=== PATIENT | male | born 1995 | race African-American/Black ===

== ENCOUNTER 2023-11-25 16:54 | Inpatient (IN) | payer BC, SELFPAY ==
--- NOTE | ~2023-11-25 | XR_ITS ---
EXAMINATION: XR CHEST CLINICAL INFORMATION: hx of Valley fever COMPARISON: None available. TECHNIQUE: 2 views of the chest were obtained. FINDINGS: Lungs are clear. No pulmonary vascular congestion. There is no pleural effusion. The heart size is normal. The cardiac and mediastinal contours are normal. Hyde rods in the thoracic spine. Hardware in the upper thoracic spine vertebrae could be due to previous corpectomy. Correlate with history. Prior resection of the posterior right fifth rib. XR/XR chest 2V IMPRESSION: No acute abnormality of the chest.
--- NOTE | ~2023-11-25 | CT_ITS ---
EXAMINATION: CT ABDOMEN AND PELVIS WITHOUT CONTRAST CLINICAL INFORMATION: Abdominal pain. COMPARISON: None available. TECHNIQUE: Multidetector volumetric imaging was performed from the superior aspect of the liver through the pubic symphysis. Sagittal and coronal reformatted images were obtained on the technologist's workstation. This CT examination was performed using dose optimization techniques as appropriate, variously including the following: *Automated exposure control *Adjustment of mA and/or kV according to patient size (this includes techniques or standardized protocols for targeted exams where dose is matched to indication/reason for exam; i.e. extremities or head) *Use of iterative reconstruction technique DLP: 639 mGy-cm FINDINGS: LUNG BASES: There is minimal scarring at the right lung base. LIVER, GALLBLADDER, AND BILIARY TREE: The liver is normal in size, shape, and attenuation. No focal hepatic lesion or biliary ductal dilatation is present. The gallbladder is unremarkable with no evidence of radiopaque gallstones, gallbladder wall thickening, or obvious pericholecystic inflammatory changes. PANCREAS: Unremarkable. SPLEEN: Spleen measures up to 16 cm. No focal splenic lesions are seen. ADRENAL GLANDS: Unremarkable. KIDNEYS AND URETERS: The kidneys are normal in size, shape, and attenuation. No hydronephrosis, hydroureter, or calculi seen. No perinephric stranding. BLADDER: Unremarkable. GASTROINTESTINAL TRACT: The small and large bowel are unremarkable. The appendix is unremarkable. ABDOMINAL WALL: No significant hernia is appreciated. LYMPH NODES: Normal. VASCULAR: Unremarkable. PELVIC VISCERA: Unremarkable. OSSEOUS STRUCTURES: Unremarkable. CT/CT abdomen pelvis wo IV con IMPRESSION: Mild splenomegaly. No other significant abnormality seen. Fleischner guidelines were followed.
[2023-11-25 17:03] VITALS: BP 168/64; PULSE 80; O2SAT 98
--- NOTE | 2023-11-25 17:08 | ED.GENADULT ---
HPI - General Adult General Chief complaint: General Medical Stated complaint: DIAPHORETIC NAUSEA DIZZY HEADACHE Time Seen by Provider: 11/25/23 22:07 Source: patient Mode of arrival: ambulatory Limitations: no limitations History of Present Illness HPI narrative: Patient comes to the emergency room complaining of 1 week of diffuse body aches, intermittent fever and sweats, nausea, diarrhea. Patient states that he returned from [place] on November 13. Patient's sister travel with him and when they [place] to the [place] she tested positive for malaria. On November 18, this Patient went to a hospital in [facility]. Patient states that he was tested for malaria but his results will not be available for a few days. Patient states that his symptoms have gradually been getting worse. Patient was prescribed doxycycline and has been taking it as prescribed. Related Data Allergies Allergy/AdvReac Type Severity Reaction Status Date / Time No Known Allergies Allergy Verified 11/25/23 17:14 Review of Systems Review of Systems: Constitutional : No Weight loss, No Fever, No Chills, No Night Sweats, No Fatigue, No Malaise ENT/Mouth : No Hearing loss, No Ear Pain, No Nasal Congestion, No Sinus Pain, No Hoarseness, No sore throat, No Rhinorrhea, No Swallowing Difficulty Eyes: No Eye Pain, No Swelling, No Redness, No Foreign Body, No Discharge, No Vision Changes Cardiovascular : No Chest Pain, No SOB, No Dyspnea on Exertion, No Orthopnea, No Edema, No Palpitations Respiratory : No Cough, No Sputum, No Wheezing, No Smoke Exposure, No Dyspnea Gastrointestinal : No Nausea, No Vomiting, No Diarrhea, No Constipation, No abdominal Pain, No Hematochezia, No Melena Genitourinary : no irregular bleeding, No Dysuria, No Urinary Frequency, No Hematuria, No Urinary Incontinence, No Urgency, No Flank Pain, No Urinary Flow Changes, No Hesitancy Musculoskeletal : No joint pain, No Myalgias, No Joint Swelling Skin : No Skin Lesions, No rash Neuro : No Weakness, No Numbness, No Paresthesias, No Loss of Consciousness, No Dizziness, No Headache Psych : No Anxiety/Panic, No Depression, No SI/HI/AH/VH, No Social Issues, Heme/Lymph: No Bruising, No Bleeding,No Lymphadenopathy Endocrine : No Polyuria, No Polydipsia, No Temperature Intolerance PMFSH Social History Social History Smoked in Last 30 Days: No Use of substances other than those prescribed or required for medical reasons: No Advance Directives: No Advance Directives Information Provided: No Physical Exam ED Vital Signs: Vital Signs - 24 hr 11/25/23 17:10 11/25/23 20:55 11/25/23 23:10 Temperature 99.1 F 98.4 F Pulse Rate 75 78 91 Respiratory Rate 18 20 16 Blood Pressure 115/52 L 117/81 134/69 Pulse Oximetry 97 100 100 Oxygen Delivery Method Room Air Room Air Room Air BMI result Body Mass Index 35.4 Const Other: Appearance: Alert. Oriented X3. Seems weak Eyes: Pupils equal, round and reactive to light. ENT: Pharynx normal. Dry oral mucosa and lips Neck: Normal inspection. Neck supple. No lymph nodes noted. No crepitus CVS: Normal heart rate and rhythm. Pulses normal. Normal S1 and S2 Respiratory: No respiratory distress. Breath sounds normal. No Wheezing. No rales Abdomen: Soft and nontender. No rigidity. No distention. Skin: Skin warm and dry. Normal skin color. Normal skin turgor. Extremities: No lower extremity edema. No Lacerations. No Rash Neuro: Oriented X 3. No motor deficit. No sensory deficit. Moving all extremities. No slurred speech. CN 2 through 12 grossly intact Psych: calm, cooperative, normal affect Course Course Course Narrative: This is a rapid medical exam: Additional HPI, ROS, PE not included below will be deferred to primary provider. Patient is a 28-year-old male presenting to the ED with complaint of nausea, sweats, fatigue, diarrhea, left sided abdominal pain since 11/18/23. Denies cough or dyspnea. Returned from [place] on 11/11/23. 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 Patient reports that he was seen in an ED in [place], [place] last week, tested for malaria, and was started on doxycycline but patient is unable to state why. States does not believe he was tested for Covid/flu. 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 Medical Decision Making Medical Decision Making [facility] Narrative: -my interpretation of labs: Serology negative for COVID and influenza, negative for strep. Hematology normal white blood cell count, hemoglobin 10.8, no previous labs available. Platelets 38. Patient's LFTs mildly elevated, lactic acid 2.4 and 2.5, receiving IV fluids. Patient taking p.o. doxycycline for approximately 1 week now. -patient's vitals are stable, no hypotension, no fever, sepsis not suspected -patient does look dehydrated, patient getting 2 L of fluid, patient's ideal weight -I discussed the patient with Dr. Meyer, at this time, hydroxychloroquine is not recommended due to resistance. Coartem would best but we dont have it. other option is Malarone (atovaquone/proguanil). In the pharmacy we only have atovaquone, which would not be sufficient to treat. Plan: Admit patient for hydration, tomorrow wait for pathology report. If positive, give to the patient prescription to hand picker in a pharmacy coartem or malarone. Differential Diagnosis Differential Diagnoses: The differential diagnosis associated with the presentation includes (Malaria, viral syndrome) Admission/Observation Consideration of admission/observation: Escalation of care including admission/observation considered Consult Healthcare Provider Management of the patient was discussed with: Hospitalist and Hospice Care Consultant Lab Data [facility] Lab Attestation statement: I reviewed the patient's lab results. 11/25/23 18:01 11/25/23 18:01 Labs: Lab Results 11/25/23 11/25/23 Range/Units 18:01 22:03 WBC 5.0 (4.8-10.8) X10*3/uL RBC 3.58 L (4.60-5.80) X10*6/uL Hgb 10.8 L (14.0-18.0) g/dl Hct 31.0 L (42.0-52.0) % MCV 86.6 (80.0-98.0) fL MCH 30.2 (27.0-33.0) pg MCHC 34.8 (31.0-36.0) g/dl RDW 14.0 (11.0-16.0) % Plt Count 38 L (160-400) X10*3/uL MPV 12.0 (9.4-12.4) fL Immature Gran % (Auto) Cancelled Neut % (Auto) Cancelled Lymph % (Auto) Cancelled [place] % (Auto) Cancelled Eos % (Auto) Cancelled Baso % (Auto) Cancelled Lymph # (Auto) Cancelled [place] # (Auto) Cancelled Eos # (Auto) Cancelled Baso # (Auto) Cancelled Abs Immat Gran (auto) Cancelled Absolute Neuts (auto) Cancelled Absolute Nucleated RBC 0.000 (0.0-0.012) X10*3/uL Nucleated RBC % (auto) 0.0 (0.0-0.2) /100WBC Neutrophils % (Manual) 54 (45-73) % Band Neutrophils % 24 H (3-5) % Lymphocytes % (Manual) 15 L (20-40) % Monocytes % (Manual) 4 (2-11) % Basophils % (Manual) 1 (0-2) % Metamyelocytes % 2 % Abs Neuts (Manual) 3.9 (2.0-8.3) X10*3/uL Lymphocytes # (Manual) 0.8 L (1.2-4.9) X10*3/uL Monocytes # (Manual) 0.2 (0.1-1.2) X10*3/uL Basophils # (Manual) 0.1 (0.0-0.2) X10*3/uL Metamyelocytes # 0.1 X10*3/uL Toxic Vacuolation PRESENT Dohle Bodies PRESENT Platelet Estimate DECREASED (NORMAL) Plt Morphology Comment NORMAL RBC Morphology NOTED Polychromasia 1+ (0-2) /OIF Sodium 134 L (135-145) mmol/L Potassium 3.6 (3.3-5.1) mmol/L Chloride 101 (96-108) mmol/L Carbon Dioxide 22 (22-29) mmol/L Anion Gap 15 (12-20) BUN 24 H (9-16) mg/dL Creatinine 1.25 (0.5-1.4) mg/dL Estim Creat Clear Calc 105.0 Estimated GFR > 60 Random Glucose 138 H (60-115) mg/dL Lactic Acid 2.4 H* (0.5-2.0) mmol/L Lactic Acid F/U @ 2Hr 2.5 H* (0.5-2.0) mmol/L Calcium 8.6 (8.4-10.2) mg/dL Magnesium 1.7 (1.6-2.6) mg/dL Total Bilirubin 3.5 H (0.0-1.0) mg/dL Direct Bilirubin 1.3 H (0.0-0.5) mg/dL AST 88 H (5-37) U/L ALT 36 (0-40) U/L Alkaline Phosphatase 70 (39-117) U/L Total Protein 7.0 (6.5-8.0) g/dL Albumin 3.2 L (3.5-5.0) g/dL Lipase 33 (8-78) U/L Urine Color Red A Urine Appearance Cloudy Urine pH 5.5 (5.0-9.0) Ur Specific [place] >= 1.030 H (1.005-1.025) Urine Protein See Note (Neg-Trace) mg/dL Urine Glucose (UA) See Note (Negative) mg/dL Urine Ketones See Note (Negative) mg/dL Urine Blood See Note (Negative) Urine Nitrite See Note (Negative) Ur Leukocyte Esterase See Note (Negative) Urine RBC >20 H (0-2) /HPF Urine WBC 0-5 (0-5) /HPF Ur Squamous Epith Cells 11-20 (0-2) /HPF Urine Bacteria None Seen (None Seen) Hyaline Casts 6-10 (0-2) /LPF Granular Casts Present COVID-19 (CYNTHIA) Negative (Negative) COVID-19 Clin Com See Note Influenza Type A (MARGARET) Negative (Negative) Influenza Type B (MARGARET) Negative (Negative) Influenza A & B Note See Note S. pyogenes GrpA MARGARET Negative (Negative) Independent Interpretation I performed an independent interpretation of an: Plain X-Ray (My interpretation of chest x-ray: No pneumonia) Radiology Impression Discussion of test interpretation with radiology: I have reviewed the radiologist's reading. Radiologist Impression: Lungs are clear. No pulmonary vascular congestion. There is no pleural effusion. The heart size is normal. The cardiac and mediastinal contours are normal. Hyed rods in the thoracic spine. Hardware in the upper thoracic spine vertebrae could be due to previous corpectomy. Correlate with history. Prior resection of the posterior right fifth rib. XR/XR chest 2V IMPRESSION: No acute abnormality of the chest. Critical Care Time Critical Care Time Critical Care Time: Yes Total Critical Care Time: 75 Attestation: I have personally provided critical care time. Time includes review of lab data, radiology results, discussion with consultants, and monitoring for potential decompensation. Intervention performed as documented. Discharge Plan Discharge Clinical Impression: Acute dehydration Patient Disposition: Admitted As Inpatient
[2023-11-25 17:10] VITALS: BP 115/52; PULSE 75; RESP 18; TEMP 37.3; O2SAT 97; BMI 35.4
--- NOTE | 2023-11-25 17:16 | ECG_ITS ---
Test Reason : FATIGE,DIAPHORETIC Blood Pressure : / mmHG Vent. Rate : 071 BPM Atrial Rate : 071 BPM P-R Int : 204 ms QRS Dur : 108 ms QT Int : 394 ms P-R-T Axes : 022 008 010 degrees QTc Int : 428 ms Normal sinus rhythm Incomplete right bundle branch block Minimal voltage criteria for LVH, may be normal variant ( R in aVL ) Borderline ECG No previous ECGs available Referred By: Rochelle Valle Electronically Signed By:JENNIFER PORTER
[2023-11-25 18:16] LABS: Hemoglobin 10.8 g/dl (14.0-18.0); Mean Corpuscular HGB Conc 34.8 g/dl (31.0-36.0); Mean Corpuscular Hemoglobin 30.2 pg (27.0-33.0); Mean Corpuscular Volume 86.6 fL (80.0-98.0); Red Blood Count 3.58 X10*6/uL (4.60-5.80)
[2023-11-25 18:23] LABS: Appearance Urine Cloudy; Color Urine Red; PH 5.5 (5.0-9.0); Specific Gravity - Urine >= 1.030 (1.005-1.025); UMIC TRIGGER UACC YES
[2023-11-25 18:28] LABS: Alanine Aminotransferase 36 U/L (0-40); Albumin Level 3.2 g/dL (3.5-5.0); Alkaline Phosphatase 70 U/L (39-117); Anion Gap 15 (12-20); Aspartate Amino Transferase 88 U/L (5-37); Bilirubin Total 3.5 mg/dL (0.0-1.0); Blood Urea Nitrogen 24 mg/dL (9-16); Calcium 8.6 mg/dL (8.4-10.2); Carbon Dioxide 22 mmol/L (22-29); Chloride 101 mmol/L (96-108); Estimated Glomerular Filt Rate > 60; Glucose Random 138 mg/dL (60-115); Lipase 33 U/L (8-78); Magnesium 1.7 mg/dL (1.6-2.6); Potassium 3.6 mmol/L (3.3-5.1); Sodium 134 mmol/L (135-145)
[2023-11-25 18:42] LABS: IDNOW Serial# 9DB6401D; Influenza A Negative (Negative); Influenza B2 Negative (Negative)
[2023-11-25 18:43] LABS: COVID-19 Test Negative (Negative); IDNOW Serial# 08D9AD1C; IDNOW Serial# 152EDE1D; Strep A Nucleic Acid Negative (Negative)
[2023-11-25 19:07] LABS: Bacteria Urine None Seen (None Seen); Granular Casts Urine Present; RBC Urine >20 /HPF (0-2); WBC Urine 0-5 /HPF (0-5)
[2023-11-25 19:16] LABS: Neutrophils Percent Manual 54 % (45-73)
[2023-11-25 19:21] LABS: Band Neutrophils Percent 24 % (3-5); Basophils Abs Manual 0.1 X10*3/uL (0.0-0.2); Basophils Percent Manual 1 % (0-2); Dohle Bodies PRESENT; Lymphocytes Absolute Manual 0.8 X10*3/uL (1.2-4.9); Lymphocytes Percent Manual 15 % (20-40); Metamyelocytes Absolute 0.1 X10*3/uL; Metamyelocytes Percent 2 %; Monocytes Absolute Manual 0.2 X10*3/uL (0.1-1.2); Monocytes Percent Manual 4 % (2-11); Neutrophils Absolute Manual 3.9 X10*3/uL (2.0-8.3); RBC Morphology NOTED; Toxic Vacuolation PRESENT
[2023-11-25 19:24] LABS: Platelet Estimate DECREASED (NORMAL); Platelet Morphology Comment NORMAL; Polychromasia 1+ (0-2) /OIF
[2023-11-25 19:26] LABS: Lactic Acid 2.4 mmol/L (0.5-2.0)
[2023-11-25 19:32] LABS: Platelet Count 38 X10*3/uL (160-400)
[2023-11-25 20:10] LABS: Reflex Lactate? Lactic Acid Added
[2023-11-25 20:55] VITALS: BP 117/81; PULSE 78; RESP 20; TEMP 36.9; O2SAT 100
[2023-11-25 21:01] LABS: Bilirubin Direct 1.3 mg/dL (0.0-0.5)
[2023-11-25 22:31] LABS: ~Lactic Acid-LAB USE ONLY 2.5 mmol/L (0.5-2.0)
[2023-11-25 23:10] VITALS: BP 134/69; PULSE 91; RESP 16; O2SAT 100
[2023-11-25] MEDS: 0.9 % Sodium Chloride 2,000 ML 999 ML IVCONT (23:15)
[2023-11-25 23:40] LABS: Immature Retic Fraction 12.1 % (2.3-13.4); Retic HGB Equivalent 31.7 pg (30.0-35.0); Reticulocyte Percent 1.6 % (0.5-1.8); Reticulocytes Absolute 0.056 X10*6/uL (0.026-0.095)
[2023-11-25 23:41] VITALS: BP 117/64; PULSE 97; RESP 16; O2SAT 90
[2023-11-25 23:54] LABS: Lactate Dehydrogenase 933 U/L (118-273)
[2023-11-26] VITALS (7 sets, daily range): BP systolic 106–116; BP diastolic 51–69; PULSE 69–81; RESP 13–18; TEMP 36.8–38; O2SAT 96–98
[2023-11-26 00:07] LABS: Reflex Lactate? 2 Y
--- NOTE | 2023-11-26 01:06 | P.HPHOSP_ITS ---
History of Present Illness Date of Service: 11/26/23 Chief Complaint: Fevers and chills This is a 28-year-old male with no pertinent past medical history and not on prescription medications who presents to the emergency department for evaluation of fevers and chills. Patient states he returned from [facility] on 11/11/2023. He was having intermittent fevers, chills with body ache and headache that started 3 days after his return to the [place] Patient went to a hospital in [place] where he tested positive for rhinovirus. He was resuscitated with IV crystalloids and discharged with a prescription of ibuprofen and doxycycline. Patient states he continues to have intermittent fevers and chills. No pattern to his fevers. States he has been having high fever but unable to report temperature. It is associated with headache, nausea, body ache and loose stools. No melena or hematuria or hematemesis or hematochezia. Patient states his sister tested positive for malaria. He also had malaria as a child. He did not take malaria prophylaxis on his recent trip to [place]. Unaware of local transmission rates. No chest discomfort, vomiting, palpitations, shortness of breath, changes in urinary habits. Does endorse intermittent generalized abdominal discomfort which does not increase with p.o. intake In the emergency department, patient was found to have elevated indirect bilirubin. Hemoglobin and platelet found to be low Review of Systems 2 Constitutional: Constitutional: Reports body ache(s), Reports chills, Reports fatigue, Reports fever(s), Reports headache(s), Reports lethargy, Reports malaise and Reports weakness ENT: Reports headache(s) Cardiovascular: Cardiovascular: Reports no additional cardiovascular complaints Respiratory: Respiratory: Reports no additional respiratory complaints Gastrointestinal: Gastrointestinal: Reports nausea Genitourinary: Genitourinary: Reports no additional male genitourinary complaints Neurologic: Reports headache(s) and Reports weakness Endocrine: Endocrine: Reports fatigue PMFSH Pertinent family history: No family history of early CAD Social History Smoked in Last 30 Days: No Use of substances other than those prescribed or required for medical reasons: No Advance Directives: No Advance Directives Information Provided: No Meds Allergies Allergy/AdvReac Type Severity Reaction Status Date / Time No Known Allergies Allergy Verified 11/25/23 17:14 Physical Exam 2 Vital Signs and Narrative: Vital Signs: Last Vital Signs Temp 98.4 F 11/25/23 20:55 Pulse 97 11/25/23 23:41 Resp 16 11/25/23 23:41 BP 117/64 11/25/23 23:41 Pulse Ox 90 L 11/25/23 23:41 O2 Del Method Room Air 11/25/23 23:41 BMI result Body Mass Index 35.4 Middle-aged male lying in bed in no distress Neck supple, no JVD Regular rate and rhythm, S1-S2 heard Regular breath sounds bilaterally, no wheezing or crackles appreciated Abdomen soft nontender, no guarding, no rigidity Patient is awake, alert and oriented to self, place, time and person ; no focal motor deficit Psych: Normal mood No pedal edema Results Labs 11/25/23 18:01 11/25/23 18:01 Labs: Laboratory Results - last 24 hr 11/25/23 11/25/23 11/25/23 18:01 22:03 23:18 MCV 86.6 MCH 30.2 MCHC 34.8 RDW 14.0 Plt Count 38 L MPV 12.0 Immature Gran % (Auto) Cancelled Neut % (Auto) Cancelled Lymph % (Auto) Cancelled [place] % (Auto) Cancelled Eos % (Auto) Cancelled Baso % (Auto) Cancelled Lymph # (Auto) Cancelled [place] # (Auto) Cancelled Eos # (Auto) Cancelled Baso # (Auto) Cancelled Abs Immat Gran (auto) Cancelled Absolute Neuts (auto) Cancelled Absolute Nucleated RBC 0.000 Nucleated RBC % (auto) 0.0 Neutrophils % (Manual) 54 Band Neutrophils % 24 H Lymphocytes % (Manual) 15 L Monocytes % (Manual) 4 Basophils % (Manual) 1 Metamyelocytes % 2 Abs Neuts (Manual) 3.9 Lymphocytes # (Manual) 0.8 L Monocytes # (Manual) 0.2 Basophils # (Manual) 0.1 Metamyelocytes # 0.1 Toxic Vacuolation PRESENT Dohle Bodies PRESENT Platelet Estimate DECREASED Plt Morphology Comment NORMAL RBC Morphology NOTED Polychromasia 1+ (0-2) Absolute Retic 0.056 Percent Retic 1.6 Immature Retic Fraction 12.1 Retic Hgb Equivalent 31.7 Anion Gap 15 Estim Creat Clear Calc 105.0 Estimated GFR > 60 Random Glucose 138 H Lactic Acid 2.4 H* Lactic Acid F/U @ 2Hr 2.5 H* Calcium 8.6 Magnesium 1.7 Total Bilirubin 3.5 H Direct Bilirubin 1.3 H AST 88 H ALT 36 Alkaline Phosphatase 70 Lactate Dehydrogenase 933 H Total Creatine Kinase 79 Total Protein 7.0 Albumin 3.2 L Lipase 33 Urine Color Red A Urine Appearance Cloudy Urine pH 5.5 Ur Specific [place] >= 1.030 H Urine Protein See Note Urine Glucose (UA) See Note Urine Ketones See Note Urine Blood See Note Urine Nitrite See Note Ur Leukocyte Esterase See Note Urine RBC >20 H Urine WBC 0-5 Ur Squamous Epith Cells 11-20 Urine Bacteria None Seen Hyaline Casts 6-10 Granular Casts Present COVID-19 (CYNTHIA) Negative COVID-19 Clin Com See Note Influenza Type A (MARGARET) Negative Influenza Type B (MARGARET) Negative Influenza A & B Note See Note S. pyogenes GrpA MARGARET Negative Imaging Radiologist's Impressions: Impressions Chest X-Ray 11/25/23 20:20 IMPRESSION: No acute abnormality of the chest. Abdomen/Pelvis CT 11/25/23 23:50 IMPRESSION: Mild splenomegaly. No other significant abnormality seen. Fleischner guidelines were followed. Assessment and Plan (1) Fever and chills: Status: Acute Plan This is a 28-year-old male with no pertinent past medical history and not on prescription medications who presents to the emergency department for evaluation of fevers and chills. #. Fevers/chills/generalized body ache: Ordered malaria/Babesia smear. Infectious Disease was consulted from the ER, who recommended waiting for smear to begin treatment. No improvement with 4-5 days of p.o. doxycycline. Smear path review pending. Blood cultures obtained in the ER #. Normocytic anemia: Ordered LDH, haptoglobin and retic count to rule out hemolysis #. Thrombocytopenia likely in the setting of infection: Continue to monitor. No life-threatening bleed. Currently above transfusion threshold DVT prophylaxis: Defer Lovenox in the setting of thrombocytopenia Full code Quality Stroke Does the patient have a stroke diagnosis?: No VTE Prior VTE?: No VTE Risk Level:: Medical - moderate - high VTE Device Contraindication: N/A - Device Ordered VTE Drug Contraindication: Treatment Not Indicated
[2023-11-26 01:26] LABS: ~Lactic Acid-LAB USE ONLY 1.3 mmol/L (0.5-2.0)
[2023-11-26 06:23] LABS: Hematocrit 28.6 % (42.0-52.0); Hemoglobin 9.9 g/dl (14.0-18.0); Mean Corpuscular HGB Conc 34.6 g/dl (31.0-36.0); Mean Corpuscular Hemoglobin 29.6 pg (27.0-33.0); Mean Corpuscular Volume 85.4 fL (80.0-98.0); Mean Platelet Volume 12.2 fL (9.4-12.4); Red Blood Count 3.35 X10*6/uL (4.60-5.80); White Blood Count 3.7 X10*3/uL (4.8-10.8)
[2023-11-26 06:24] LABS: Platelet Count 47 X10*3/uL (160-400)
[2023-11-26 06:35] LABS: Alanine Aminotransferase 32 U/L (0-40); Albumin Level 2.9 g/dL (3.5-5.0); Alkaline Phosphatase 60 U/L (39-117); Anion Gap 12 (12-20); Aspartate Amino Transferase 65 U/L (5-37); Bilirubin Total 1.5 mg/dL (0.0-1.0); Blood Urea Nitrogen 15 mg/dL (9-16); Calcium 8.2 mg/dL (8.4-10.2); Carbon Dioxide 24 mmol/L (22-29); Chloride 106 mmol/L (96-108); Creatinine Clr Calc Pharmacy 154.5; Estimated Glomerular Filt Rate > 60; Glucose Random 117 mg/dL (60-115); Potassium 3.6 mmol/L (3.3-5.1); Sodium 138 mmol/L (135-145); Total Protein 6.5 g/dL (6.5-8.0)
--- NOTE | 2023-11-26 08:23 | PC.NURSE ---
assumed care of pt at 0700. pt sleeping, woken up for breakfast. pt refused and went back to sleep. rr even/unlabored. call jenkins within pt reach. awaiting bed assignment. plan of care ongoing.
[2023-11-26 08:26] LABS: SLIDE REVIEW MANUAL DIFF
[2023-11-26 08:33] LABS: Atypical Lymphs Percent Manual 1 % (0-6); Band Neutrophils Percent 9 % (3-5); Lymphocytes Absolute Manual 0.6 X10*3/uL (1.2-4.9); Lymphocytes Percent Manual 17 % (20-40); Monocytes Absolute Manual 0.2 X10*3/uL (0.1-1.2); Monocytes Percent Manual 5 % (2-11); Neutrophils Absolute Manual 2.8 X10*3/uL (2.0-8.3); Neutrophils Percent Manual 68 % (45-73)
[2023-11-26 08:43] LABS: Acanthocytes 1+ (0-2) /OIF; RBC Morphology NOTED; Schistocytes 1+ (0-2) /OIF
[2023-11-26 08:44] LABS: Spherocytes 2+ (3-5) /OIF
[2023-11-26 08:46] LABS: Dohle Bodies PRESENT; Polychromasia 1+ (0-2) /OIF
[2023-11-26 08:47] LABS: Platelet Estimate DECREASED (NORMAL); Platelet Morphology Comment NORMAL
--- NOTE | 2023-11-26 09:26 | PM.EVENT ---
Event Note Date of Service: 11/26/23 Event Note: thrombocytopenia due to parasitic infection Time Spent With Patient Time: Total time managing care of this patient today ____ minutes.
--- NOTE | 2023-11-26 10:11 | MHC.CM.PN ---
PT REPORTS HE LIVES ALONE AND IS INDEPENDENT WITH CARE HE HAS NO DME AND NO HOME SERVICES PT SAYS HE SEES A PCP WITH [facility] HE IS NOT INTERESTED IN COMPLETING A HCP OBSERVATION NOTICE DELIVERED DCP: HOME NO SERVICES VIA PRIVATE TRANSPORT
--- NOTE | 2023-11-26 11:08 | PM.DS ---
DS: Providers Provider Date of Service: 11/26/23 Date of admission: 11/26/23 01:07 Primary care physician: Unknown Physician Consults: 11/26/23 01:14 Consult to Infectious Diseases Routine Consulting Provider: [facility] [facility] Reason for consultation: fever/chills, ?intraerythrocytic parasitic infection DS: Diagnosis Discharge Diagnosis (1) Fever and chills: Status: Acute DS: Summary Hospital Course Hospital Course: from initial hpi: 28-year-old male with no pertinent past medical history and not on prescription medications who presents to the emergency department for evaluation of fevers and chills. Patient states he returned from [facility] on 11/11/2023. He was having intermittent fevers, chills with body ache and headache that started 3 days after his return to the [place] Patient went to a hospital in [place] where he tested positive for rhinovirus. He was resuscitated with IV crystalloids and discharged with a prescription of ibuprofen and doxycycline. Patient states he continues to have intermittent fevers and chills. No pattern to his fevers. States he has been having high fever but unable to report temperature. It is associated with headache, nausea, body ache and loose stools. No melena or hematuria or hematemesis or hematochezia. Patient states his sister tested positive for malaria. He also had malaria as a child. He did not take malaria prophylaxis on his recent trip to [place]. Unaware of local transmission rates. No chest discomfort, vomiting, palpitations, shortness of breath, changes in urinary habits. Does endorse intermittent generalized abdominal discomfort which does not increase with p.o. intake In the emergency department, patient was found to have elevated indirect bilirubin. Hemoglobin and platelet found to be low hospital course: Patient was admitted for fevers and generalized body aches due to malaria after recent travel to [facility]. 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 Labs consistent with hemolysis. started on coartem, jaundice and platelets improved. Patient will be discharged on 3 day course of coartem. Time Attestation Discharge coordination time: Greater than 30 minutes Quality: Safe Use of Opioids Does Pt have an Active Cancer Diagnosis on the Problem List?: No Quality: Stroke Does the patient have a stroke diagnosis?: No Physical Exam Vital Signs: Vital Signs: Last Vital Signs Temp 98.4 F 11/25/23 20:55 Pulse 69 11/26/23 06:02 Resp 16 11/26/23 06:02 BP 106/69 11/26/23 06:02 Pulse Ox 98 11/26/23 06:02 O2 Del Method Room Air 11/26/23 06:02 BMI result Body Mass Index 35.4 General: AO X 3, no acute distress Resp: CTA bilateral, no accessory muscles used CVS: S1,S2,RRR GI: soft, non tender, non distended Neuro: motor grossly intact, alert Psych: appropriate affect, appropriate insight DS: Data Data Completed and Pending Labs on day of discharge: Laboratory Results - last 24 hr 11/25/23 11/25/23 11/25/23 18:01 22:03 23:18 WBC 5.0 RBC 3.58 L Hgb 10.8 L Hct 31.0 L MCV 86.6 MCH 30.2 MCHC 34.8 RDW 14.0 Plt Count 38 L MPV 12.0 Immature Gran % (Auto) Cancelled Neut % (Auto) Cancelled Lymph % (Auto) Cancelled [place] % (Auto) Cancelled Eos % (Auto) Cancelled Baso % (Auto) Cancelled Lymph # (Auto) Cancelled [place] # (Auto) Cancelled Eos # (Auto) Cancelled Baso # (Auto) Cancelled Abs Immat Gran (auto) Cancelled Absolute Neuts (auto) Cancelled Absolute Nucleated RBC 0.000 Nucleated RBC % (auto) 0.0 Neutrophils % (Manual) 54 Band Neutrophils % 24 H Lymphocytes % (Manual) 15 L Atypical Lymphs % (Man) Monocytes % (Manual) 4 Basophils % (Manual) 1 Metamyelocytes % 2 Abs Neuts (Manual) 3.9 Lymphocytes # (Manual) 0.8 L Monocytes # (Manual) 0.2 Basophils # (Manual) 0.1 Metamyelocytes # 0.1 Toxic Vacuolation PRESENT Dohle Bodies PRESENT Platelet Estimate DECREASED Plt Morphology Comment NORMAL RBC Morphology NOTED Polychromasia 1+ (0-2) Spherocytes Acanthocytes (Spur) Schistocytes Smear Tech's Comments Smear Path Review SEE NOTE Absolute Retic 0.056 Percent Retic 1.6 Immature Retic Fraction 12.1 Retic Hgb Equivalent 31.7 Sodium 134 L Potassium 3.6 Chloride 101 Carbon Dioxide 22 Anion Gap 15 BUN 24 H Creatinine 1.25 Estim Creat Clear Calc 105.0 Estimated GFR > 60 Random Glucose 138 H Lactic Acid 2.4 H* Lactic Acid F/U @ 2Hr 2.5 H* Lactic Acid F/U @ 4Hr Calcium 8.6 Magnesium 1.7 Total Bilirubin 3.5 H Direct Bilirubin 1.3 H AST 88 H ALT 36 Alkaline Phosphatase 70 Lactate Dehydrogenase 933 H Total Creatine Kinase 79 Total Protein 7.0 Albumin 3.2 L Lipase 33 Urine Color Red A Urine Appearance Cloudy Urine pH 5.5 Ur Specific [place] >= 1.030 H Urine Protein See Note Urine Glucose (UA) See Note Urine Ketones See Note Urine Blood See Note Urine Nitrite See Note Ur Leukocyte Esterase See Note Urine RBC >20 H Urine WBC 0-5 Ur Squamous Epith Cells 11-20 Urine Bacteria None Seen Hyaline Casts 6-10 Granular Casts Present COVID-19 (CYNTHIA) Negative COVID-19 Clin Com See Note Influenza Type A (MARGARET) Negative Influenza Type B (MARGARET) Negative Influenza A & B Note See Note S. pyogenes GrpA MARGARET Negative 11/26/23 11/26/23 00:58 05:08 WBC 3.7 L RBC 3.35 L Hgb 9.9 L Hct 28.6 L MCV 85.4 MCH 29.6 MCHC 34.6 RDW 14.0 Plt Count 47 L MPV 12.2 Immature Gran % (Auto) Cancelled Neut % (Auto) Cancelled Lymph % (Auto) Cancelled [place] % (Auto) Cancelled Eos % (Auto) Cancelled Baso % (Auto) Cancelled Lymph # (Auto) Cancelled [place] # (Auto) Cancelled Eos # (Auto) Cancelled Baso # (Auto) Cancelled Abs Immat Gran (auto) Cancelled Absolute Neuts (auto) Cancelled Absolute Nucleated RBC 0.000 Nucleated RBC % (auto) 0.0 Neutrophils % (Manual) 68 Band Neutrophils % 9 H Lymphocytes % (Manual) 17 L Atypical Lymphs % (Man) 1 Monocytes % (Manual) 5 Basophils % (Manual) Metamyelocytes % Abs Neuts (Manual) 2.8 Lymphocytes # (Manual) 0.6 L Monocytes # (Manual) 0.2 Basophils # (Manual) Metamyelocytes # Toxic Vacuolation Dohle Bodies PRESENT Platelet Estimate DECREASED Plt Morphology Comment NORMAL RBC Morphology NOTED Polychromasia 1+ (0-2) Spherocytes 2+ (3-5) Acanthocytes (Spur) 1+ (0-2) Schistocytes 1+ (0-2) Smear Tech's Comments MANUAL DIFF Smear Path Review Absolute Retic Percent Retic Immature Retic Fraction Retic Hgb Equivalent Sodium 138 Potassium 3.6 Chloride 106 Carbon Dioxide 24 Anion Gap 12 BUN 15 Creatinine 0.85 Estim Creat Clear Calc 154.5 Estimated GFR > 60 Random Glucose 117 H Lactic Acid Lactic Acid F/U @ 2Hr Lactic Acid F/U @ 4Hr 1.3 Calcium 8.2 L Magnesium Total Bilirubin 1.5 H Direct Bilirubin AST 65 H ALT 32 Alkaline Phosphatase 60 Lactate Dehydrogenase Total Creatine Kinase Total Protein 6.5 Albumin 2.9 L Lipase Urine Color Urine Appearance Urine pH Ur Specific [place] Urine Protein Urine Glucose (UA) Urine Ketones Urine Blood Urine Nitrite Ur Leukocyte Esterase Urine RBC Urine WBC Ur Squamous Epith Cells Urine Bacteria Hyaline Casts Granular Casts COVID-19 (CYNTHIA) COVID-19 Clin Com Influenza Type A (MARGARET) Influenza Type B (MARGARET) Influenza A & B Note S. pyogenes GrpA MARGARET Discharge Plan Discharge Anticipated Discharge Date/Time: 11/27/23 08:52 Patient Disposition: Home, Self-Care Discharge Diagnosis: Malaria Referrals: Physician,Unknown J [Primary Care Provider] - 1 Week Discharge Medications: New artemether-lumefantrine 20-120 mg tablet 4 tab PO BID 3 Days Qty: 24 0RF Rx Instructions: give with food (meal/snack) Discontinued doxycycline hyclate 100 mg capsule 100 mg PO BID Discharge Orders: Discharge Order (Routine); Ordered 11/27/23 Ordered By: Liu Posada Diet: Advance to usual diet Activity on Discharge: As tolerated Stand Alone Forms: Patient Portal Discharge page, Work/School Release Care Plan Goals: recovery Health Concerns: malaria Plan of Treatment: 3 days of coartem, recheck labs next week, return for worsening headache, body aches, fevers, jaundice Assessment: see above
--- NOTE | 2023-11-26 11:32 | PC.NURSE ---
discharge order in for pt per Dr. Posada, awaiting Dr. Meyer to meet with pt. and make sure coartem stocked in [facility] pharmacy.
--- NOTE | 2023-11-26 12:14 | HO.PM.IMPN ---
Subjective Subjective Date of Service: 11/26/23 Interval History: fever, headaqche Physical Exam Vital Signs: Vital Signs: Last Vital Signs Temp 98.2 F 11/26/23 11:29 Pulse 73 11/26/23 11:29 Resp 16 11/26/23 11:29 BP 116/61 11/26/23 11:29 Pulse Ox 98 11/26/23 11:29 O2 Del Method Room Air 11/26/23 11:29 BMI result Body Mass Index 35.4 General: AO X 3, no acute distress Resp: CTA bilateral, no accessory muscles used CVS: S1,S2,RRR GI: soft, non tender, non distended Neuro: motor grossly intact, alert Psych: appropriate affect, appropriate insight Objective Data Active Medications Acetaminophen (Acetaminophen 325 Mg Tablet) 650 mg PO Q6H PRN PRN Reason: Pain, Mild (Pain Scale 1-3) Melatonin (Melatonin 3 Mg Tablet) 6 mg PO BEDTIME PRN PRN Reason: Insomnia Ondansetron HCl (Ondansetron Hcl 4 Mg/2 Ml Vial) 4 mg IVPUSH Q8H PRN PRN Reason: Nausea and Vomiting Sodium Chloride (0.9 % Sodium Chloride Flush 3 Ml Syringe) 3 ml IVFLUSH QSHIFT [facility] Last Admin: 11/26/23 07:22 Dose: Not Given Documented By: CARMEN Non-Admin Reason: Med Not Available Labs 11/26/23 05:08 11/26/23 05:08 Labs: Laboratory Results - last 24 hr 11/25/23 11/25/23 11/25/23 18:01 22:03 23:18 MCV 86.6 MCH 30.2 MCHC 34.8 RDW 14.0 Plt Count 38 L MPV 12.0 Immature Gran % (Auto) Cancelled Neut % (Auto) Cancelled Lymph % (Auto) Cancelled [place] % (Auto) Cancelled Eos % (Auto) Cancelled Baso % (Auto) Cancelled Lymph # (Auto) Cancelled [place] # (Auto) Cancelled Eos # (Auto) Cancelled Baso # (Auto) Cancelled Abs Immat Gran (auto) Cancelled Absolute Neuts (auto) Cancelled Absolute Nucleated RBC 0.000 Nucleated RBC % (auto) 0.0 Neutrophils % (Manual) 54 Band Neutrophils % 24 H Lymphocytes % (Manual) 15 L Atypical Lymphs % (Man) Monocytes % (Manual) 4 Basophils % (Manual) 1 Metamyelocytes % 2 Abs Neuts (Manual) 3.9 Lymphocytes # (Manual) 0.8 L Monocytes # (Manual) 0.2 Basophils # (Manual) 0.1 Metamyelocytes # 0.1 Toxic Vacuolation PRESENT Dohle Bodies PRESENT Platelet Estimate DECREASED Plt Morphology Comment NORMAL RBC Morphology NOTED Polychromasia 1+ (0-2) Spherocytes Acanthocytes (Spur) Schistocytes Smear Tech's Comments Smear Path Review SEE NOTE Absolute Retic 0.056 Percent Retic 1.6 Immature Retic Fraction 12.1 Retic Hgb Equivalent 31.7 Anion Gap 15 Estim Creat Clear Calc 105.0 Estimated GFR > 60 Random Glucose 138 H Lactic Acid 2.4 H* Lactic Acid F/U @ 2Hr 2.5 H* Lactic Acid F/U @ 4Hr Calcium 8.6 Magnesium 1.7 Total Bilirubin 3.5 H Direct Bilirubin 1.3 H AST 88 H ALT 36 Alkaline Phosphatase 70 Lactate Dehydrogenase 933 H Total Creatine Kinase 79 Total Protein 7.0 Albumin 3.2 L Lipase 33 Urine Color Red A Urine Appearance Cloudy Urine pH 5.5 Ur Specific [place] >= 1.030 H Urine Protein See Note Urine Glucose (UA) See Note Urine Ketones See Note Urine Blood See Note Urine Nitrite See Note Ur Leukocyte Esterase See Note Urine RBC >20 H Urine WBC 0-5 Ur Squamous Epith Cells 11-20 Urine Bacteria None Seen Hyaline Casts 6-10 Granular Casts Present COVID-19 (CYNTHIA) Negative COVID-19 Clin Com See Note Influenza Type A (MARGARET) Negative Influenza Type B (MARGARET) Negative Influenza A & B Note See Note S. pyogenes GrpA MARGARET Negative 11/26/23 11/26/23 00:58 05:08 MCV 85.4 MCH 29.6 MCHC 34.6 RDW 14.0 Plt Count 47 L MPV 12.2 Immature Gran % (Auto) Cancelled Neut % (Auto) Cancelled Lymph % (Auto) Cancelled [place] % (Auto) Cancelled Eos % (Auto) Cancelled Baso % (Auto) Cancelled Lymph # (Auto) Cancelled [place] # (Auto) Cancelled Eos # (Auto) Cancelled Baso # (Auto) Cancelled Abs Immat Gran (auto) Cancelled Absolute Neuts (auto) Cancelled Absolute Nucleated RBC 0.000 Nucleated RBC % (auto) 0.0 Neutrophils % (Manual) 68 Band Neutrophils % 9 H Lymphocytes % (Manual) 17 L Atypical Lymphs % (Man) 1 Monocytes % (Manual) 5 Basophils % (Manual) Metamyelocytes % Abs Neuts (Manual) 2.8 Lymphocytes # (Manual) 0.6 L Monocytes # (Manual) 0.2 Basophils # (Manual) Metamyelocytes # Toxic Vacuolation Dohle Bodies PRESENT Platelet Estimate DECREASED Plt Morphology Comment NORMAL RBC Morphology NOTED Polychromasia 1+ (0-2) Spherocytes 2+ (3-5) Acanthocytes (Spur) 1+ (0-2) Schistocytes 1+ (0-2) Smear Tech's Comments MANUAL DIFF Smear Path Review Absolute Retic Percent Retic Immature Retic Fraction Retic Hgb Equivalent Anion Gap 12 Estim Creat Clear Calc 154.5 Estimated GFR > 60 Random Glucose 117 H Lactic Acid Lactic Acid F/U @ 2Hr Lactic Acid F/U @ 4Hr 1.3 Calcium 8.2 L Magnesium Total Bilirubin 1.5 H Direct Bilirubin AST 65 H ALT 32 Alkaline Phosphatase 60 Lactate Dehydrogenase Total Creatine Kinase Total Protein 6.5 Albumin 2.9 L Lipase Urine Color Urine Appearance Urine pH Ur Specific [place] Urine Protein Urine Glucose (UA) Urine Ketones Urine Blood Urine Nitrite Ur Leukocyte Esterase Urine RBC Urine WBC Ur Squamous Epith Cells Urine Bacteria Hyaline Casts Granular Casts COVID-19 (CYNTHIA) COVID-19 Clin Com Influenza Type A (MARGARET) Influenza Type B (MARGARET) Influenza A & B Note S. pyogenes GrpA MARGARET Assessment and Plan (1) Malaria: Status: Acute Plan 28M presented with fevers after returning from [facility] acute malaria complicated by hemolysis, thrombocytopenia follow up ID labs full code reason for continued hospitalization: active hemolysis, needs antimalarial Quality Stroke Does the patient have a stroke diagnosis?: No VTE Prior VTE?: No VTE Risk Level:: Medical - moderate - high VTE Device Contraindication: N/A - Device Ordered VTE Drug Contraindication: Treatment Not Indicated
--- NOTE | 2023-11-26 12:22 | PC.NURSE ---
pt to not be discharged per Dr. Meyer and Dr. Posada. Dr. Meyer prefers if pt stays until urine clears as pt sts urine has been dark/bloody. fluids ordered, plan of care ongoing.
[2023-11-26] MEDS: 0.9 % Sodium Chloride 1,000 ML 100 ML IVCONT ×2 (13:01→21:35)
--- NOTE | 2023-11-26 15:37 | PC.NURSE ---
plan for pt to have at least 1 more overnight stay to monitor pt. pharmacy arranging malaria medication that was not in C stock. pt and family updated and aware of plan of care.
--- NOTE | 2023-11-26 15:51 | P.CNID_ITS ---
History of Present Illness Data of Consult Service Date: 11/26/23 Requesting physician: Liu Posada Primary Care Provider: Unknown Physician HPI Reason for consult: malaria He presents with nausea,diarrhea,fever and body aches. He returned from [facility] on 11/13. His sister tested positive for malaria. They did not take prophylaxis. The patient went to ED in [place] and was tested and discharged same day with Doxycycline. He is not better. He also notes headache and brown urine. He has no jaundice. He has no bleeding. He has less than 1% p falciparum malaria. His platelets are 38. Review of Systems 2 Review of Systems: Yes all other systems are reviewed and are negative PMFSH Past Medical History Medical History Malaria Family History Family history: reviewed and not pertinent Social History Social History Smoked in Last 30 Days: No Use of substances other than those prescribed or required for medical reasons: No Advance Directives: No Advance Directives Information Provided: No service: No Meds Allergies Allergy/AdvReac Type Severity Reaction Status Date / Time No Known Allergies Allergy Verified 11/25/23 17:14 Active Medications: Current Medications Acetaminophen (Acetaminophen 325 Mg Tablet) 650 mg PO Q6H PRN PRN Reason: Pain, Mild (Pain Scale 1-3) Sodium Chloride (Ns) 1,000 mls @ 100 mls/hr IVCONT .Q10H [facility] Last Admin: 11/26/23 13:01 Dose: 100 mls/hr Melatonin (Melatonin 3 Mg Tablet) 6 mg PO BEDTIME PRN PRN Reason: Insomnia Ondansetron HCl (Ondansetron Hcl 4 Mg/2 Ml Vial) 4 mg IVPUSH Q8H PRN PRN Reason: Nausea and Vomiting Sodium Chloride (0.9 % Sodium Chloride Flush 3 Ml Syringe) 3 ml IVFLUSH QSHIFT [facility] Last Admin: 11/26/23 14:18 Dose: Not Given Physical Exam 2 Vital Signs: Vital Signs: Last Vital Signs Temp 98.2 F 11/26/23 11:29 Pulse 73 11/26/23 11:29 Resp 16 11/26/23 11:29 BP 116/61 11/26/23 11:29 Pulse Ox 98 11/26/23 11:29 O2 Del Method Room Air 11/26/23 11:29 BMI result Body Mass Index 35.4 Const: General: cooperative HEENT: Head: Yes normal to inspection Face and sinus: Yes normal facial exam Mouth: Normal oral and palatal mucosa present Teeth and gingiva: d entition normal Eyes: General: appearance normal, both eyes and all related structures P upils: Equal, round and reactive pupils present Resp: Effort & Inspection: normal respiratory effort Cardio: Rate: regular rate Rhythm: regular rhythm GI: Palpation (GI): Soft to palpation and nontender : General: Yes no CVA tenderness Back/Spine/Pelvis: Back: no CVA tenderness Skin: General skin exam: no rashes or lesions noted Neuro: General: moves all extremities Cranial nerves: Yes Equal, round and reactive pupils present Extrem: General: Yes normal to inspection Psych: Appearance: grossly normal Results Labs 11/26/23 05:08 11/26/23 05:08 Labs: Short CBC 11/25/23 11/26/23 Range/Units 18:01 05:08 WBC 5.0 3.7 L (4.8-10.8) X10*3/uL Hgb 10.8 L 9.9 L (14.0-18.0) g/dl Hct 31.0 L 28.6 L (42.0-52.0) % Plt Count 38 L 47 L (160-400) X10*3/uL BMP 11/25/23 11/26/23 18:01 05:08 Sodium 134 L 138 Potassium 3.6 3.6 Chloride 101 106 Carbon Dioxide 22 24 BUN 24 H 15 Creatinine 1.25 0.85 Calcium 8.6 8.2 L Cardiac Enzymes 11/25/23 Range/Units 23:18 Total Creatine Kinase 79 (38-174) U/L Liver Function 11/25/23 11/26/23 Range/Units 18:01 05:08 Total Bilirubin 3.5 H 1.5 H (0.0-1.0) mg/dL Direct Bilirubin 1.3 H (0.0-0.5) mg/dL AST 88 H 65 H (5-37) U/L ALT 36 32 (0-40) U/L Alkaline Phosphatase 70 60 (39-117) U/L Albumin 3.2 L 2.9 L (3.5-5.0) g/dL Urine 11/25/23 Range/Units 18:01 Urine Color Red A Urine Appearance Cloudy Urine pH 5.5 (5.0-9.0) Ur Specific [place] >= 1.030 H (1.005-1.025) Urine Protein See Note (Neg-Trace) mg/dL Urine Glucose (UA) See Note (Negative) mg/dL Assessment and Plan (1) Malaria: Status: Acute He has some features worrisome for severe malaria with thrombocytopenia and hemolysis likely in urine. He has slight elevation LFTs. He has no remarkable past medical history. 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 Unlikely also leptospirosis or dengue but possible. (2) Acute dehydration: Status: Acute Plan Coartem per protocol. Supportive care. Recheck parasite load if fever develops. Discharge when platelets and clinical condition improve. Consider check dengue and chikungunya and leptospirosis. No Ebola seen in [facility] at this time but be watchful if clinical condition changes. Check HIV test.
[2023-11-26] MEDS: Acetaminophen 325 MG TABLET 650 MG PO (19:16)
--- NOTE | 2023-11-26 19:26 | PC.NURSE ---
pt with new fever, 100.4. GELACIO Schwarz aware and medicated pt with prn tylenol. pt now reporting chills and hot flashes. NS running at 100/hr. sister at bedside. awaiting pt transport to floor. pt resting quietly watching tv on ipad. rr even/unlabored. plan of care ongoing.
--- NOTE | 2023-11-26 19:35 | PC.NURSE ---
Paloma ordered for 1999. pharmacy notified to bring it up to med surg. per Tigist, pharmacist, pt able to bring rest of prescription home with him if discharged before completing full course of meds.
[2023-11-27 03:20] VITALS: BP 120/56; PULSE 71; RESP 18; TEMP 37.3; O2SAT 97
[2023-11-27 03:39] LABS: Haptoglobin <10 MG/DL ((30-200))
[2023-11-27 06:40] LABS: Hematocrit 27.4 % (42.0-52.0); Hemoglobin 9.5 g/dl (14.0-18.0); Mean Corpuscular HGB Conc 34.7 g/dl (31.0-36.0); Mean Corpuscular Hemoglobin 29.6 pg (27.0-33.0); Mean Corpuscular Volume 85.4 fL (80.0-98.0); Mean Platelet Volume 12.9 fL (9.4-12.4); Red Blood Count 3.21 X10*6/uL (4.60-5.80); Red Cell Distribution Width 14.5 % (11.0-16.0); White Blood Count 4.2 X10*3/uL (4.8-10.8)
[2023-11-27 06:41] LABS: Platelet Count 77 X10*3/uL (160-400)
[2023-11-27 06:57] LABS: Alanine Aminotransferase 30 U/L (0-40); Albumin Level 2.8 g/dL (3.5-5.0); Alkaline Phosphatase 63 U/L (39-117); Anion Gap 11 (12-20); Aspartate Amino Transferase 45 U/L (5-37); Bilirubin Direct 0.3 mg/dL (0.0-0.5); Bilirubin Total 0.8 mg/dL (0.0-1.0); Blood Urea Nitrogen 10 mg/dL (9-16); Calcium 8.3 mg/dL (8.4-10.2); Carbon Dioxide 25 mmol/L (22-29); Chloride 107 mmol/L (96-108); Creatinine Clr Calc Pharmacy 162.1; Estimated Glomerular Filt Rate > 60; Glucose Fasting 124 mg/dL (60-99); Potassium 3.4 mmol/L (3.3-5.1); Sodium 140 mmol/L (135-145); Total Protein 6.2 g/dL (6.5-8.0)
[2023-11-27 07:09] VITALS: BP 117/55; PULSE 65; RESP 16; TEMP 36.8; O2SAT 97
[2023-11-27 07:14] LABS: HIV AB/AG Nonreactive (Nonreactive); HIV Num 1 0.05 S/CO (0.00-0.99)
--- NOTE | 2023-11-27 07:16 | PHA.MEDREC ---
Pharmacy Consult ? Medication Reconciliation Pharmacy has completed the medication reconciliation.
--- NOTE | 2023-11-27 08:55 | MHC.CM.PN ---
DP: PT HAS BEEN MEDICALLY CLEARED TO DC HOME, NO SERVICES. PT HAS OWN [facility].
== END 2023-11-27 09:51 | disposition home or self-care (01) | DRG 724 ==
LOC: HO.ED 23:35 → HO.EDOVER 11-26 01:08 → HO.S3 11-26 17:00
PROVIDERS: Emergency Medicine Emergency Medical Services; Registered Nurse Emergency; Admitting Provider Student in an Organized Health Care Education/Training Program; Emergency Provider Emergency Medicine; Visit Provider Internal Medicine
DX: B53.8 Other malaria, not elsewhere classified (principal); D69.59 Other secondary thrombocytopenia; Z20.822 Contact with and (suspected) exposure to COVID-19; Z16.39 Resistance to other specified antimicrobial drug; D64.9 Anemia, unspecified
CPT/HCPCS: 36415; 71046; 74176; 80048; 80053; 80076; 81001; 82248; 82550; 83010; 83605; 83615; 83690; 83735; 85007; 85025; 85027; 85045; 87040; 87207; 87389; 87502; 87635; 87651; 93005; 99221; 99285

== ENCOUNTER → 2023-11-25 17:16 | Outpatient (BNV) | payer BC, SELFPAY | PROVIDERS: Admitting Provider Student in an Organized Health Care Education/Training Program; Emergency Provider Emergency Medicine; Visit Provider Internal Medicine | DX: R50.9 Fever, unspecified (principal) | CPT/HCPCS: 93010 ==

== ENCOUNTER → 2023-11-26 12:35 | Outpatient (BNV) | payer BC, SELFPAY | PROVIDERS: Admitting Provider Student in an Organized Health Care Education/Training Program; Emergency Provider Emergency Medicine; Visit Provider Internal Medicine | DX: B54 Unspecified malaria (principal); E86.0 Dehydration | CPT/HCPCS: 99253 ==